=== PATIENT | male | born 1990 | race African-American/Black ===

== ENCOUNTER 2019-08-11 00:50 | Emergency (ER) | payer BC, OTHER ==
[~2019-08-11] VITALS: Ht 182.9 cm; Wt 90.7 kg
[2019-08-11 01:52] LABS: HEMATOCRIT 38.8 % (42.0-52.0); MCH 29.9 pg (26.0-34.0); MCHC 33.5 g/dL (28.0-37.0); MCV 89.3 fL (80.0-100.0); PLATELET COUNT 204 thou/uL (150-400); RBC 4.34 mil/uL (4.50-6.00); RDW 13.5 % (10.5-14.5); WBC 4.8 thou/uL (4.0-11.0)
[2019-08-11 01:54] LABS: CALCIUM 8.5 mg/dL (8.5-10.1); POTASSIUM 3.4 mmol/L (3.5-5.1)
[2019-08-11 02:00] LABS: ALBUMIN 3.8 g/dL (3.4-5.0); MAGNESIUM 2.1 mg/dL (1.8-2.4); PHOSPHORUS 2.5 mg/dL (2.5-4.9); TOTAL BILIRUBIN 0.9 mg/dL (0.2-1.0); TOTAL PROTEIN 7.3 g/dL (6.4-8.2)
[2019-08-11] MEDS ORDERED: ONDANSETRON ODT8 MG PO (02:09)
[2019-08-11] MEDS ORDERED: ATIVAN2 MG PO (02:09)
[2019-08-11] MEDS ORDERED: PRILOSEC OTC20 MG PO (02:09)
[2019-08-11 02:41] VITALS: BP 114/84
[2019-08-11 02:58] LABS: ABSOLUTE NEUTROPHILS 2.7 thou/uL (1.4-8.2); PLATELET ESTIMATE NORMAL
== END 2019-08-11 02:53 | disposition home or self-care (01) ==
LOC: ER 00:50
PROVIDERS: Emergency Medicine
DX: F10.120 Alcohol abuse with intoxication, uncomplicated (principal); E86.0 Dehydration; R11.10 Vomiting, unspecified; R53.83 Other fatigue; Z98.890 Other specified postprocedural states; Y90.0 Blood alcohol level of less than 20 mg/100 ml

== ENCOUNTER 2019-12-09 10:11 | Emergency (ER) | payer BC, OTHER ==
[~2019-12-09] VITALS: Ht 182.9 cm; Wt 87.5 kg
[~2019-12-09 10:11] MED LIST: ATIVAN2 MG PO; ONDANSETRON ODT8 MG PO; PRILOSEC OTC20 MG PO
[2019-12-09 11:21] VITALS: BP 155/82
== END 2019-12-09 11:22 | disposition home or self-care (01) ==
LOC: ER 10:11
DX: S00.12XA Contusion of left eyelid and periocular area, initial encounter (principal); Z79.899 Other long term (current) drug therapy; W10.9XXA Fall (on) (from) unspecified stairs and steps, initial encounter; Y93.89 Activity, other specified; Y92.89 Other specified places as the place of occurrence of the external cause; Y99.8 Other external cause status

== ENCOUNTER 2020-05-02 12:18 | Emergency (ER) | payer BC, OTHER ==
[~2020-05-02] VITALS: Ht 180.3 cm; Wt 83.9 kg
[2020-05-02 12:25] VITALS: BP 152/99
[2020-05-02 13:10] LABS: ABSOLUTE NEUTROPHILS 4.2 thou/uL (1.4-8.2); BASOPHILS 0.7 % (0.0-2.0); EOSINOPHILS 1.1 % (0.0-3.0); HEMATOCRIT 49.5 % (42.0-52.0); HEMOGLOBIN 16.5 gm/dL (14.0-18.0); LYMPHOCYTES 30.4 % (24.0-44.0); MCH 29.9 pg (26.0-34.0); MCHC 33.4 g/dL (28.0-37.0); MCV 89.7 fL (80.0-100.0); MONOCYTES 10.2 % (1.0-8.0); POLYS 57.6 % (36.0-66.0); RBC 5.52 mil/uL (4.50-6.00); RDW 14.3 % (10.5-14.5); WBC 8.3 thou/uL (4.0-11.0)
[2020-05-02 13:41] LABS: PLATELET COUNT 273 thou/uL (150-400)
[2020-05-02 14:09] LABS: ALBUMIN 2.6 g/dL (3.4-5.0); CREATININE 0.6 mg/dL (0.7-1.3); TOTAL BILIRUBIN 0.4 mg/dL (0.2-1.0); TOTAL PROTEIN 5.2 g/dL (6.4-8.2)
[2020-05-02 14:11] LABS: CALCIUM 5.8 mg/dL (8.5-10.1); POTASSIUM 2.3 mmol/L (3.5-5.1)
[2020-05-02 15:01] VITALS: BP 104/40
[2020-05-02 15:39] LABS: MAGNESIUM 1.1 mg/dL (1.8-2.4); PHOSPHORUS 1.1 mg/dL (2.6-4.7)
[2020-05-02 16:07] LABS: FOLIC ACID 7.9 ng/mL (8.6-58.9)
[2020-05-02] MEDS ORDERED: PHENERGAN 25 MG25 M1 PO ×3 (21:34→21:39)
[2020-05-02] MEDS ORDERED: BENTYL 10 MG CA10 M1 PO ×3 (21:34→21:39)
[2020-05-02] MEDS ORDERED: ONDANSETRON HCL4 M2 PO ×3 (21:34→21:39)
== END 2020-05-02 16:20 | disposition left against medical advice (07) ==
LOC: ER 12:18 → EROBS 15:09 → ER 16:20
PROVIDERS: Emergency Medicine; Internal Medicine
DX: R11.2 Nausea with vomiting, unspecified (principal); F10.10 Alcohol abuse, uncomplicated; Y90.0 Blood alcohol level of less than 20 mg/100 ml

== ENCOUNTER 2020-05-02 20:18 | Emergency (ER) | payer BC, OTHER ==
[~2020-05-02] VITALS: Ht 182.9 cm; Wt 90.7 kg
[2020-05-02 20:34] VITALS: BP 147/94
[2020-05-02 21:06] LABS: CREATININE 1.1 mg/dL (0.7-1.3)
[2020-05-02 21:08] LABS: CALCIUM 9.2 mg/dL (8.5-10.1); POTASSIUM 3.8 mmol/L (3.5-5.1)
[2020-05-02 21:34] LABS: AMP/METHAMP Negative (Negative); BARBITURATES Negative (Negative); BENZODIAZEPINES POSITIVE (Negative); COCAINE Negative (Negative); METHADONE Negative (Negative); OPIATES Negative (Negative); PCP Negative (Negative)
[2020-05-02] MEDS ORDERED: ONDANSETRON HCL4 M2 PO ×3 (21:34→21:39)
[2020-05-02] MEDS ORDERED: BENTYL 10 MG CA10 M1 PO ×3 (21:34→21:39)
[2020-05-02] MEDS ORDERED: PHENERGAN 25 MG25 M1 PO ×3 (21:34→21:39)
[2020-05-02 22:13] VITALS: BP 126/73
[2020-05-02 22:28] LABS: ALBUMIN 4.2 g/dL (3.4-5.0); MAGNESIUM 1.6 mg/dL (1.8-2.4); TOTAL BILIRUBIN 0.5 mg/dL (0.2-1.0); TOTAL PROTEIN 8.2 g/dL (6.4-8.2)
--- NOTE | 2020-05-03 07:06 | EKG ---
[place] [address] [facility] [place] [employer] [place] [address] ELECTROCARDIOGRAM REPORT Name: ROBERT GAVIN [id number] Admission: 05/02/20 Attend Phys: Discharge: 05/02/20 Date of : 88 Report #: [id number] [facility] ED Test Date: 2020-05-02 Test Time: 20:26:26 Pat Name: ROBERT GAVIN Department: Room: 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: BARBIE : 1990 Requested By: Roberto Begum Order Number: [id number] MD: Sukhdev Travis Measurements Intervals [place] Rate: 74 P: 79 AR: 154 QRS: 55 QRSD: 86 T: 17 QT: 418 QTc: 464 Interpretive Statements Sinus rhythm Probable left atrial enlargement Baseline wander in lead(s) V1 No previous ECG available for comparison Electronically Signed On 05-03-2020 7:06:09 CDT by Sukhdev Travis [email or web address] <ELECTRONICALLY SIGNED> By: Sukhdev Travis MD, [facility] 05/03/20 0706 25 25 Sukhdev Travis MD, FACC /EPI
== END 2020-05-02 22:28 | disposition home or self-care (01) ==
LOC: ER 20:18 → EROBS 21:26 → ER 22:28
PROVIDERS: Nurse Practitioner
DX: F10.10 Alcohol abuse, uncomplicated (principal); R11.2 Nausea with vomiting, unspecified; R10.84 Generalized abdominal pain; Y90.0 Blood alcohol level of less than 20 mg/100 ml